=== PATIENT | male | born 1955 | race Caucasian/White ===

== ENCOUNTER → 2019-10-17 | Outpatient (CLI) | payer MEDICARE ==
[~2019-10-17] MED LIST: ADVAIR 250/501 EA PO; ALLOPURINOL1 POW; COREG3.125 MG PO; DOXYCYCLINE100 M3 PO; FLUCONAZOLE100 MG PO; LOPRESSOR25 MG PO; PREDNISONE10 MG PO; PROTONIX40 MG PO; SINGULAIR10 M1 PO; TRICOR145 M1 PO
[2019-10-17 14:21] LABS: BASO % 0.2 % (0.0-1.0); HEMATOCRIT 41.8 % (42.0-52.0); HEMOGLOBIN 14.4 g/dl (14.0-18.0); LYMPH % 16.9 % (27.0-41.0); MEAN CELL VOLUME 105.8 fl (80.0-94.0); MEAN CORPUSCULAR HGB 36.5 pg (27.0-31.0); MEAN CORPUSCULAR HGB CONC 34.4 g/dl (33.0-37.0); MEAN PLATELET VOLUME 10.6 fl (9.6-12.3); MONO # 0.8 10*3/uL (0.1-1.0); MONO % 13.8 % (3.0-9.0); NEUT % 68.6 % (47.0-73.0); PLATELET COUNT AUTOMATED 217 10*3/uL (130-400); RED BLOOD COUNT 3.95 10*6/uL (4.50-5.90); RED CELL DISTRI WIDTH 11.5 % (0-14.5); RETICULOCYTE % 1.95 % (0.50-2.50); WHITE BLOOD COUNT 5.8 10*3/uL (4.8-10.8)
[2019-10-17 14:27] LABS: BILIRUBIN NEGATIVE (NEGATIVE); BLOOD NEGATIVE (NEGATIVE); CLARITY CLEAR (CLEAR); COLOR YELLOW (YELLOW); GLUCOSE NEGATIVE (NEGATIVE); KETONE NEGATIVE (NEGATIVE); LEUKO ESTERASE NEGATIVE (NEGATIVE); NITRITE NEGATIVE (NEGATIVE); UROBILINOGEN 0.2 E.U./dl (0.2-1.0)
[2019-10-17 14:53] LABS: ALBUMIN 4.2 gm/dl (3.1-4.5); ALKALINE PHOSPHATASE 50 U/L (45-117); BUN 13 mg/dl (7-24); CHLORIDE 99 mmol/L (98-107); CHOLESTEROL 194 mg/dL (<200); CPK 140 U/L (39-308); CREATININE 0.96 mg/dL (0.70-1.30); GAMMA GLUTAMYL TRANSPEPTIDASE 33 U/L (15-85); HDL CHOLESTEROL 124 mg/dl (40-60); IRON 100 ug/dL (65-175); LDL CHOLESTEROL 60 mg/dL (9-159); POTASSIUM 4.4 mmol/L (3.5-5.1); SGOT/AST 31 IU/L (3-35); SGPT/ALT 28 U/L (12-78); SODIUM 135 mmol/L (136-145); TOTAL IRON BINDING CAPACITY 364 ug/dl (250-450); TOTAL PROTEIN 7.9 gm/dL (6.4-8.2); TRIGLYCERIDES 48 mg/dl (<150); VLDL CHOLESTEROL 10 mg/dL (6-40)
[2019-10-17 14:59] LABS: VITAMIN D, 25-HYDROXY 18.7 ng/mL (30-100)
[2019-10-17 15:00] LABS: FERRITIN 448.1 ng/mL (22.0-322.0)
== END | disposition home or self-care (01) ==
LOC: LAB 12:54
PROVIDERS: Family Medicine
DX: Z12.5 Encounter for screening for malignant neoplasm of prostate (principal); E55.9 Vitamin D deficiency, unspecified; R53.83 Other fatigue; R79.89 Other specified abnormal findings of blood chemistry; Z79.899 Other long term (current) drug therapy

== ENCOUNTER 2019-12-09 09:56 | Inpatient (IN) | payer MEDICARE ==
[~2019-12-09] VITALS: Ht 172.7 cm; Wt 69.4 kg
[2019-12-09] VITALS (12 sets, daily range): BP systolic 92–175; BP diastolic 46–86
[2019-12-09 10:27] LABS: ARTERIAL BLOOD GAS PH 7.177 (7.35-7.45)
--- NOTE | 2019-12-09 10:28 | NUR ---
PT ON C PAP,PULSE OX 97%. PT RIGHT BY NRS STATION,RESP THERAPY IN ROOM. DR SCHUMACHER IN ROOM.---ANA GAMBOA RN
[2019-12-09 10:38] LABS: BASO % 0.1 % (0.0-1.0); EOS % 0.1 % (1.0-4.0); HEMATOCRIT 38.3 % (42.0-52.0); LYMPH # 0.4 10*3/uL (1.3-4.4); LYMPH % 4.9 % (27.0-41.0); MEAN CORPUSCULAR HGB 34.9 pg (27.0-31.0); MEAN CORPUSCULAR HGB CONC 33.9 g/dl (33.0-37.0); MEAN PLATELET VOLUME 10.8 fl (9.6-12.3); MONO # 0.4 10*3/uL (0.1-1.0); MONO % 4.6 % (3.0-9.0); NEUT % 89.7 % (47.0-73.0); PLATELET COUNT AUTOMATED 169 10*3/uL (130-400); RED BLOOD COUNT 3.72 10*6/uL (4.50-5.90); RED CELL DISTRI WIDTH 11.3 % (0-14.5); WHITE BLOOD COUNT 7.8 10*3/uL (4.8-10.8)
[2019-12-09 10:56] LABS: ALBUMIN 2.7 gm/dl (3.1-4.5); ALKALINE PHOSPHATASE 47 U/L (45-117); BUN 17 mg/dl (7-24); CHLORIDE 92 mmol/L (98-107); CREATININE 1.37 mg/dL (0.70-1.30); POTASSIUM 3.8 mmol/L (3.5-5.1); SGOT/AST 63 IU/L (3-35); SGPT/ALT 28 U/L (12-78); SODIUM 125 mmol/L (136-145); TOTAL PROTEIN 7.2 gm/dL (6.4-8.2)
--- NOTE | 2019-12-09 11:04 | NUR ---
L.ACID 6.0, TROPONIN 1.20 CRITICAL FINDINGS,DR SCHUMACHER MADE AWARE. ---ANA AGMBOA RN
[2019-12-09 11:06] LABS: CLARITY SL CLOUDY (CLEAR); COLOR YELLOW (YELLOW)
[2019-12-09 11:07] LABS: BILIRUBIN NEGATIVE (NEGATIVE); BLOOD 3+ (NEGATIVE); GLUCOSE NEGATIVE (NEGATIVE); KETONE NEGATIVE (NEGATIVE); LEUKO ESTERASE NEGATIVE (NEGATIVE); NITRITE NEGATIVE (NEGATIVE); SPECIFIC GRAVITY 1.025 (1.005-1.030); UROBILINOGEN 0.2 E.U./dl (0.2-1.0)
[2019-12-09 11:14] LABS: BACTERIA 2+; RBC TNTC rbc/hpf (0-2); WBC 21-30 wbc/hpf (0-5)
--- NOTE | 2019-12-09 12:00 | NUR ---
In to see pt at this time and family and him do not need anything.
--- NOTE | 2019-12-09 14:00 | NUR ---
A 64 yr old male, admitted to [facility]U, under the services of ISABELA Phillips DO with a diagnosis of RESPIRATORY FAILURE, SEVERE SEPSIS, PNEUMONIA. Chief complaint is sudden onset of respiratory distress at home today. Patient arrived via stretcher from ER. Monitor applied. Initial assessment completed. Vital signs taken and recorded. See assessment for past medical history, medications and allergies. Patient and/or family oriented to unit. [facility] visitation policy reviewed. Clothing/patient valuable form completed. DHIRAJ OLSON L
[2019-12-09] MEDS ORDERED: VITAMIN D3 PO (14:21)
[2019-12-09] MEDS ORDERED: RISEDRONATE SO150 MG PO (14:29)
[2019-12-09] MEDS ORDERED: B121000 MCG/1 IM (14:30)
--- NOTE | 2019-12-09 15:17 | NUR ---
HEPARIN DRIP DVT/PE PROTOCOL STARTED AT 1500 PER PROTOCOL. NO BOLUS GIVEN BASELINE PTT 36.7. PT RESTING PRESENTLY ON 4L/MIN. ABLE TO CONVERSE. ATTEMPTED TO CALL DR SCOTT WITH CONSULT, HE'S WITH A PATIENT AND WILL CALL BACK. AWAITING BMP JUST DRAWN TO CALL DR KRISHNAMURTHY WITH CONSULTATION. PER DR Kenny WATSON HE HAS SPOKEN WITH DR MAGANA, THEREFORE I AM NOT CALLING THAT CONSULT.
[2019-12-09 15:33] LABS: BUN 16 mg/dl (7-24); CHLORIDE 96 mmol/L (98-107); CREATININE 1.09 mg/dL (0.70-1.30); POTASSIUM 3.4 mmol/L (3.5-5.1); SODIUM 129 mmol/L (136-145)
--- NOTE | 2019-12-09 16:04 | NUR ---
CONSULT CALLED TO [facility] WITH A REQUEST TO CALL BACK FOR IV FLUID ORDERS.
[2019-12-09 16:14] LABS: ABG BASE EXCESS -4.4 mmol/L (-2.0-2.0); ARTERIAL BLOOD GAS PH 7.363 (7.35-7.45)
--- NOTE | 2019-12-09 17:53 | NUR ---
PT HAS BEEN ACCOMPANIED TO RADIOLOGY FOR CTA. ON RETURN HE'S DEVELOPED ATRIAL FLUTTER/FIB WITH VR 170'S THEN 90'S. DR KAT HERE AND AWARE. STAT EKG ORDERED. PT DENIES DISCOMFORT. HE DECLINES WANTING ANY FOOD AT THIS TIME. AT THE BEDSIDE.
--- NOTE | 2019-12-09 18:23 | NUR ---
EKG WAS DONE, DR WATSON SENT IT TO DR MAGANA AND TALKED WITH DR MAGANA. NO NEW ORDERS. DR SCOTT HAS NOT CALLED BACK. NOW AWAITING CTA RESULTS TO ATTEMPT TO COMPLETE THE CONSULTATION.
--- NOTE | 2019-12-09 18:26 | NUR ---
PT RESTING EASILY, WATCHING TV ON HIS LAPTOP COMPUTER. AT THE BEDSIDE. MONITOR IS ATRIAL FLUTTER/FIB VR 90-130.
--- NOTE | 2019-12-09 18:45 | NUR ---
AFTER I CALLED THE CONSULT TO [facility] DR KRISHNAMURTHY ENTERED ORDERS ELECTRONICALLY, BUT DID NOT CALL THE [facility].
--- NOTE | 2019-12-09 19:29 | NUR ---
DR SCOTT CALLED, INFORMED OF CONSULT. REVIEWED LABS, XRAYS, CURRENT MEDS WITH HIM. ORDERS RECEIVED. PT HAS BEEN UP TO BSC TO VOID AND HAVE LOOSE STOOL COMBINED, UNABLE TO OBTAIN ANY URINE SPECIMENS.
--- NOTE | 2019-12-09 19:45 | NUR ---
PT HR 130-160. DR MAGANA NOTIFIED AND NEW ORDERS FOR DIG 0.5MG IV X1 NOW. THEN CARDIZEM GTT, GIVE 10MG BOLUS AND CONTINUE AT 10MG/HR AND TITRATE FOR HR >100 AND FOR SPB<100.
--- NOTE | 2019-12-09 20:00 | NUR ---
PT RESTING IN BED AWAKE, A&OX3, PLEASANT AND COOPERATIVE WITH STAFF. RESP DYSPNEIC WITH MINIMAL EXERTION. NO ACUTE DISTRESS NOTED. NO COMPLAINTS VOICED. IV HEPARIN INFUSING ORDERED WITHOUT DIFFICULTY.
[2019-12-09 22:24] LABS: BILIRUBIN NEGATIVE (NEGATIVE); BLOOD 3+ (NEGATIVE); CLARITY CLEAR (CLEAR); COLOR YELLOW (YELLOW); GLUCOSE NEGATIVE (NEGATIVE); KETONE NEGATIVE (NEGATIVE); LEUKO ESTERASE NEGATIVE (NEGATIVE); NITRITE NEGATIVE (NEGATIVE); SPECIFIC GRAVITY 1.005 (1.005-1.030); UROBILINOGEN 0.2 E.U./dl (0.2-1.0)
[2019-12-09 22:29] LABS: RBC 0-2 rbc/hpf (0-2)
[2019-12-09 22:30] LABS: BACTERIA TRACE; EPITHELIAL CELLS 0-2
[2019-12-10] VITALS: BP 112/67
[2019-12-10 04:00] VITALS: BP 103/55
[2019-12-10 07:00] LABS: HEMATOCRIT 34.1 % (42.0-52.0); HEMOGLOBIN 11.6 g/dl (14.0-18.0); MEAN CELL VOLUME 104.3 fl (80.0-94.0); MEAN CORPUSCULAR HGB 35.5 pg (27.0-31.0); MEAN PLATELET VOLUME 10.2 fl (9.6-12.3); PLATELET COUNT AUTOMATED 160 10*3/uL (130-400); RED BLOOD COUNT 3.27 10*6/uL (4.50-5.90); RED CELL DISTRI WIDTH 11.6 % (0-14.5); WHITE BLOOD COUNT 10.4 10*3/uL (4.8-10.8)
[2019-12-10 07:14] LABS: ALBUMIN 2.4 gm/dl (3.1-4.5); ALKALINE PHOSPHATASE 48 U/L (45-117); BUN 20 mg/dl (7-24); CHLORIDE 99 mmol/L (98-107); PHOSPHOROUS 2.6 mg/dL (2.5-4.9); POTASSIUM 3.9 mmol/L (3.5-5.1); SGOT/AST 73 IU/L (3-35); SGPT/ALT 39 U/L (12-78); SODIUM 131 mmol/L (136-145); TOTAL PROTEIN 6.7 gm/dL (6.4-8.2)
[2019-12-10 07:24] LABS: BURR CELLS MODERATE; PLATELET SUFFICIENCY NORMAL (NORMAL); TOTAL CELLS COUNTED 100 #CELLS; TOXIC GRANULATION SLIGHT
[2019-12-10 08:00] VITALS: BP 106/64
--- NOTE | 2019-12-10 08:34 | NUR ---
DR RAZO IN TO SEE PT. HE STATED TO CONTINUE TITRATING CARDIZEM GTT DOWN DUE TO PT IS NSR WITH A RATE IN THE 80'S NOW. CARDIZEM GTT DECREASED TO 2.5MG/HR AT THIS TIME.
--- NOTE | 2019-12-10 09:00 | NUR ---
Windows Architect in to talk to patient. Patient states lives at home with his . There are 12 steps in the home. Physician: Dr. Domingo Taylor Pharmacy: [facility] or mail in if the prescription is needed for more than 30 days Home health services: none Patient's level of ADLs: INDEPENDENT Patient has working utilities: yes DME: O2 to keep sats between 92-98%, he uses his O2 prn, portable tanks, nebulizer, O2 supplier [employer] Follow-up physician's appointment after d/c: will be made by the hospitalist nurse director upon discharge Does patient want to access PORTAL?: no Discharge plan discussed with patient. He lives at home with his . He is independent in his ADLs and ambulation. Discussed home health care services and he denies any home needs at this time. When medically stable he will be discharged to home. His will provide transportation on discharge. JUAN MORTON
--- NOTE | 2019-12-10 09:51 | NUR ---
DR KRISHNAMURTHY IN TO SEE PT.
--- NOTE | 2019-12-10 11:19 | NUR ---
HEPARIN GTT DC'D AT THIS TIME.
[2019-12-10 12:00] VITALS: BP 120/60
[2019-12-10 15:56] VITALS: BP 123/58
[2019-12-10 20:00] VITALS: BP 133/70
--- NOTE | 2019-12-10 20:54 | NUR ---
ON ASSESSMENT PATIENT RESTING EASILY IN BED, WATCHING TV ON HIS LAPTOP. WAS AT THE BEDSIDE. PT REPORTS FEELING "MUCH BETTER". MONITOR SINUS TACHY WITH PAC'S. MOIST, OCCASIONALLY PRODUCTIVE COUGH. IV FLUIDS CONTINUE PER ORDER. SEE ALL APPROPRIATE INTERVENTIONS.
--- NOTE | 2019-12-10 23:09 | NUR ---
I HAD OFFERED TO HELP PT WASH UP BEFORE BED, BUT HE PREFERS TO WAIT UNTIL TOMORROW WHEN HIS COMES BACK. I ASKED PT IF HAS ANY FEELINGS OF ALCOHOL WITHDRAWL AND HE DENIES. HE'S COMFORTABLE AND ASKED THAT I CLOSE HIS DOOR. HE CONTINUES TO WATCH TV ON HIS LAPTOP.
--- NOTE | 2019-12-10 23:38 | NUR ---
Shift chart check completed.24 HR chart check completed.
[2019-12-11] VITALS: BP 137/90
--- NOTE | 2019-12-11 00:23 | NUR ---
PT ASSISTED TO POSITION OF COMFORT AFTER RESPIRATORY TREATMENT. PT STATES "I CAN'T THANK YOU ENOUGH. I'M VERY HAPPY WITH EVERYTHING HERE".
[2019-12-11 06:00] VITALS: BP 151/81
[2019-12-11 07:17] LABS: BASO % 0.1 % (0.0-1.0); EOS % 0.1 % (1.0-4.0); HEMATOCRIT 33.4 % (42.0-52.0); HEMOGLOBIN 11.2 g/dl (14.0-18.0); LYMPH # 0.3 10*3/uL (1.3-4.4); MEAN CELL VOLUME 105.7 fl (80.0-94.0); MEAN CORPUSCULAR HGB 35.4 pg (27.0-31.0); MEAN CORPUSCULAR HGB CONC 33.5 g/dl (33.0-37.0); MEAN PLATELET VOLUME 10.3 fl (9.6-12.3); MONO % 10.4 % (3.0-9.0); NEUT # 8.6 10*3/uL (2.3-7.9); NEUT % 85.6 % (47.0-73.0); PLATELET COUNT AUTOMATED 188 10*3/uL (130-400); RED BLOOD COUNT 3.16 10*6/uL (4.50-5.90); RED CELL DISTRI WIDTH 11.7 % (0-14.5)
[2019-12-11 07:31] LABS: BUN 17 mg/dl (7-24); PHOSPHOROUS 1.4 mg/dL (2.5-4.9)
[2019-12-11 07:35] LABS: CHLORIDE 102 mmol/L (98-107); POTASSIUM 3.5 mmol/L (3.5-5.1); SODIUM 136 mmol/L (136-145)
--- NOTE | 2019-12-11 08:00 | NUR ---
Slip Cover Estimator in to see patient. No new needs or request. He denies any home needs at this time. When medically stable he will be discharged to home.
[2019-12-11 12:00] VITALS: BP 122/67
--- NOTE | 2019-12-11 12:27 | NUR ---
HEART RATE 170'S A-FIB . DIAPHORETIC. BP 115/79. MEDICATED WITH ATIVAN 1MG IV AND CARDIZEM BOLUS OF 10MG AND GTT STARTED AT 10MG/HR
--- NOTE | 2019-12-11 13:07 | NUR ---
AEROSOL TREATMENT HELD PER NURSING. PT. HR 160'S
[2019-12-11 16:00] VITALS: BP 138/81
--- NOTE | 2019-12-11 18:00 | NUR ---
TRANSFERRED TO ROOM 404-2 VIA CHAIR. HERE AT BEDSIDE
--- NOTE | 2019-12-11 19:50 | NUR ---
PATIENT SITTING IN CHAIR AT BEDSIDE WITH NO NEEDS MADE. VISITORS AT BEDSIDE. ASSESSMENT COMPLETE. BED IN LOWEST POSITION, CALL LIGHT IN REACH
[2019-12-11 20:00] VITALS: BP 123/55
[2019-12-12] VITALS: BP 136/64
--- NOTE | 2019-12-12 01:25 | NUR ---
24 HR chart check completed.
[2019-12-12 07:01] LABS: HEMATOCRIT 36.1 % (42.0-52.0); HEMOGLOBIN 11.5 g/dl (14.0-18.0); MEAN CELL VOLUME 108.4 fl (80.0-94.0); MEAN CORPUSCULAR HGB 34.5 pg (27.0-31.0); MEAN CORPUSCULAR HGB CONC 31.9 g/dl (33.0-37.0); MEAN PLATELET VOLUME 10.1 fl (9.6-12.3); PLATELET COUNT AUTOMATED 235 10*3/uL (130-400); RED BLOOD COUNT 3.33 10*6/uL (4.50-5.90); RED CELL DISTRI WIDTH 11.8 % (0-14.5); WHITE BLOOD COUNT 6.2 10*3/uL (4.8-10.8)
[2019-12-12 07:22] LABS: BUN 13 mg/dl (7-24); CHLORIDE 103 mmol/L (98-107); CREATININE 0.84 mg/dL (0.70-1.30); POTASSIUM 3.7 mmol/L (3.5-5.1); SODIUM 138 mmol/L (136-145)
[2019-12-12 07:26] LABS: PHOSPHOROUS 2.3 mg/dL (2.5-4.9)
[2019-12-12 07:41] LABS: ATYPICAL LYMPHS 1 % (0-0); BURR CELLS FEW; PLATELET SUFFICIENCY NORMAL (NORMAL); SCHISTOCYTES FEW; TOTAL CELLS COUNTED 100 #CELLS
[2019-12-12 08:00] VITALS: BP 122/54
--- NOTE | 2019-12-12 09:00 | NUR ---
PT OFF FLOOR VIA WHEELCHAIR TO CARDIAC REHAB WITH DR MAGANA FOR STRESS TEST.
--- NOTE | 2019-12-12 09:45 | NUR ---
INFORMED CONSENT OBTAINED FOR LEXISCAN NUCLEAR STRESS TEST WITH DR. MAGANA. RESTING EKG NSR WITH A RESTING HR OF 99 WITH BP OF 122/64. LUNGS WITH INSPIRATORY AND EXPIRATORY WHEEZE WITH SPO2 OF 93% WITH NASAL O2 AT 3L. PT COMPLETED A 1:00 LEXISCAN PROTOCOL RECEIVING LEXISCAN 0.4 MG IV OVER 10 SECONDS. HAD NO CHEST PAIN OR ANY EKG CHANGES. HAD A PEAK HR OF 108 WITH BP OF 120/60. LAST RECOVERY HR OF 106 WITH BP OF 130/68. AWAITING SCANNING IN STABLE CONDITION.
--- NOTE | 2019-12-12 09:49 | NUR ---
Attempted PT evaluation this am with pt out of room receiving stress test. Will attempt at later date Leigha Quintana, PT
--- NOTE | 2019-12-12 09:49 | NUR ---
Patient not available for occupational therapy evaluation as he is at a stress test. Evie Boykin OTr/L
--- NOTE | 2019-12-12 11:00 | NUR ---
Belt Splicer in to see patient. He is not currently in his room but his is at the beside. Discussed any discharge needs at home and she denies any home needs. When medically stable he will be discharged to home.
[2019-12-12 12:00] VITALS: BP 137/69
[2019-12-12 16:00] VITALS: BP 128/67
[2019-12-12 20:00] VITALS: BP 140/64
[2019-12-13] VITALS: BP 146/70
[2019-12-13 08:00] VITALS: BP 144/70
--- NOTE | 2019-12-13 08:41 | NUR ---
PT SITTING UP IN CHAIR, NO DISTRESS NOTED. WILL MONITOR
[2019-12-13 08:45] LABS: BUN 10 mg/dl (7-24); CHLORIDE 103 mmol/L (98-107); CREATININE 0.54 mg/dL (0.70-1.30); POTASSIUM 3.5 mmol/L (3.5-5.1); SODIUM 139 mmol/L (136-145)
--- NOTE | 2019-12-13 10:00 | NUR ---
PHYSICAL THERAPY PT SCREEN COMPLETED TODAY AND PATIENT IS FOUND TO BE UP AD AB IN ROOM WITHOUT ANY ISSUES AND STATING HE DOES NOT WANT OR NEED PT SERVICES. BASED ON SCREEN NO PT INDICATED . THANK YOU FOR REFERRAL VIVIANA LUNA PT
[2019-12-13 12:00] VITALS: BP 137/61
[2019-12-13 16:00] VITALS: BP 154/74
[2019-12-13 20:00] VITALS: BP 139/71
[2019-12-13 21:03] LABS: INFLUENZA B ANTIBODIES 1:32 (Neg:<1:8)
[2019-12-14] VITALS: BP 132/69
--- NOTE | 2019-12-14 07:53 | NUR ---
PT RESTING IN BED/ NO DISTRESS NOTED. WILL MONITOR
[2019-12-14 08:00] VITALS: BP 142/66
[2019-12-14 12:00] VITALS: BP 123/72
--- NOTE | 2019-12-14 12:15 | NUR ---
HOME O2 ASSESSMENT PERFORMED SPO2 AT REST ON RA - 83%, HR - 93, BP - 132/64 3L NASAL CANNULA APPLIED SPO2 AT REST ON 3L NASAL CANNULA - 93% SPO2 AMBULATING ON 3L NASAL CANNULA - 87% 4L NASAL CANNULA APPLIED SPO2 AMBULATING ON 4L NASAL CANNULA - 88% 5L NASAL CANNULA APPLIED SPO2 AMBULATING ON 5L NASAL CANNULA - 91% SPO2 AT REST ON 3L NASAL CANNULA - 93%, HR - 102, BP 138/72
[2019-12-14 16:00] VITALS: BP 134/63
--- NOTE | 2019-12-14 19:53 | NUR ---
PATIENT RESTING IN CHAIR AT BEDSIDE, DENIES SHORTNESS OF BREATH OR NEEDS AT THIS TIME. BED IN LOWEST POSITION, CALL LIGHT IN REACH
[2019-12-14 20:00] VITALS: BP 139/63
[2019-12-15] VITALS: BP 139/70
--- NOTE | 2019-12-15 07:48 | NUR ---
PT RESTING IN CHAIR. NO DISTRESS NOTED. WILL MONITOR
[2019-12-15 08:00] VITALS: BP 130/68
--- NOTE | 2019-12-15 09:00 | NUR ---
Software Release Engineer in to see patient. at bedside. No new needs or request at this time. When medically stable he will be discharged to home.
--- NOTE | 2019-12-15 10:37 | NUR ---
Nutritional Support Services Note: Discussed cardiac diet with pt and pts . All questions were answered. They have a healthy diet. Encouraged them to call me with any questions or concerns. Love Subramanian Rdn Ld
[2019-12-15 12:00] VITALS: BP 126/63
[2019-12-15] MEDS ORDERED: VANCO 1.51.5 GM/250 IV (12:25)
[2019-12-15] MEDS ORDERED: METOPROLOL SUCC50 M1 PO (12:25)
[2019-12-15] MEDS ORDERED: ATORVASTATIN CA40 M1 PO (12:25)
[2019-12-15] MEDS ORDERED: ASPIRIN ADULT L81 M2 PO (12:25)
[2019-12-15] MEDS ORDERED: XARE20MG PO (12:25)
--- NOTE | 2019-12-15 13:04 | NUR ---
Faxed prescription of Vancomycin 1500 mg IV daily BID for 7 more days to [facility]. Awaiting response.
--- NOTE | 2019-12-15 13:19 | NUR ---
Faxed home health order to [facility]
--- NOTE | 2019-12-15 13:30 | NUR ---
Patient not available for OT as he is having a test in his room. Nursing reports that he is to be discharged today. Evie Boykin OTr/l
--- NOTE | 2019-12-15 14:25 | NUR ---
Received call from Marilee at [facility]. They are currently working on his case.
--- NOTE | 2019-12-15 15:38 | NUR ---
Spoke to Marilee from [facility] regarding home IV antibiotics. Drug co-pay will be $210.79 with a $26 daily fee. Discussed with and patient regarding above cost and they are agreeable. Notified Marilee at [facility], Anai at [facility], and Dr. Bhat. 1st dose of IV Vanc currently infusing. Plan is to discharge patient home tonight with 1st dose of IV antibiotic tomorrow at home at 10am. and patient are willing to learn how to administer. Nurse notified.
[2019-12-15 16:00] VITALS: BP 138/64
--- NOTE | 2019-12-15 16:07 | NUR ---
Notified and patient of potential discharge tonight with start of care of IV antibiotics tomorrow morning at 10am. They both verbalized an understanding.
--- NOTE | 2019-12-15 17:54 | NUR ---
Discharge instructions reviewed with patient/family. Patient receptive and verbalizes understanding. Follow-up care arranged. Written instructions given to patient/family. VIOLET DOAN
[2019-12-17 10:05] LABS: ADENOVIRUS Negative (Negative); INFLUENZA A Negative (Negative); INFLUENZA B Negative (Negative); METAPNEUMOVIRUS Negative (Negative); PARAINFLUENZA 1 Negative (Negative); PARAINFLUENZA 2 Negative (Negative); PARAINFLUENZA 3 Negative (Negative); RHINOVIRUS Negative (Negative); RSV A Negative (Negative); RSV B Negative (Negative)
== END 2019-12-15 17:54 | disposition home or self-care (01) | DRG 871 ==
LOC: ED 09:56 → ICCU 11:50 → EDHOLD 11:50 → ICCU 13:06 → 4E 12-11 17:27
PROVIDERS: Emergency Medicine; Internal Medicine; Internal Medicine Critical Care Medicine; Internal Medicine Nephrology; Student in an Organized Health Care Education/Training Program; ADMIT Internal Medicine
DX: A41.9 Sepsis, unspecified organism (principal); J96.21 Acute and chronic respiratory failure with hypoxia; N17.0 Acute kidney failure with tubular necrosis; R65.21 Severe sepsis with septic shock; J15.211 Pneumonia due to Methicillin susceptible Staphylococcus aureus; J96.22 Acute and chronic respiratory failure with hypercapnia; I21.A1 Myocardial infarction type 2; N30.01 Acute cystitis with hematuria; E87.1 Hypo-osmolality and hyponatremia; E87.8 Other disorders of electrolyte and fluid balance, not elsewhere classified; R73.9 Hyperglycemia, unspecified; I48.91 Unspecified atrial fibrillation; J43.9 Emphysema, unspecified; I10 Essential (primary) hypertension; R74.0 Nonspecific elevation of levels of transaminase and lactic acid dehydrogenase [LDH]; F10.10 Alcohol abuse, uncomplicated; D53.9 Nutritional anemia, unspecified; E83.39 Other disorders of phosphorus metabolism; Z90.49 Acquired absence of other specified parts of digestive tract; Z82.3 Family history of stroke; Z83.3 Family history of diabetes mellitus; Z68.23 Body mass index [BMI] 23.0-23.9, adult; Z88.0 Allergy status to penicillin; Z91.018 Allergy to other foods

== ENCOUNTER 2019-12-25 14:10 | Emergency (ER) | payer MEDICARE ==
[~2019-12-25] VITALS: Ht 172.7 cm; Wt 68.0 kg
[~2019-12-25 14:10] MED LIST changes: +ASPIRIN ADULT L81 M2 PO; +ATORVASTATIN CA40 M1 PO; +B121000 MCG/1 IM; +METOPROLOL SUCC50 M1 PO; +RISEDRONATE SO150 MG PO; +VANCO 1.51.5 GM/250 IV; +VITAMIN D3 PO; +XARE20MG PO
== END 2019-12-25 16:32 | disposition home or self-care (01) ==
LOC: ED 14:10
DX: N17.9 Acute kidney failure, unspecified (principal); J44.9 Chronic obstructive pulmonary disease, unspecified; I48.91 Unspecified atrial fibrillation; I10 Essential (primary) hypertension; Z88.0 Allergy status to penicillin; Z91.018 Allergy to other foods; Z79.899 Other long term (current) drug therapy; Z87.891 Personal history of nicotine dependence

== ENCOUNTER → 2020-11-16 | Outpatient (CLI) | payer MEDICARE ==
[2020-11-16 14:30] LABS: BASO % 0.4 % (0.0-1.0); EOS % 0.3 % (1.0-4.0); LYMPH # 1.3 10*3/uL (1.3-4.4); LYMPH % 17.2 % (27.0-41.0); MEAN CELL VOLUME 104.2 fl (80.0-94.0); MEAN CORPUSCULAR HGB 34.1 pg (27.0-31.0); MEAN CORPUSCULAR HGB CONC 32.8 g/dl (33.0-37.0); MONO # 0.9 10*3/uL (0.1-1.0); MONO % 11.9 % (3.0-9.0); NEUT # 5.1 10*3/uL (2.3-7.9); NEUT % 69.7 % (47.0-73.0); PLATELET COUNT AUTOMATED 207 10*3/uL (130-400); RED BLOOD COUNT 3.84 10*6/uL (4.50-5.90); RED CELL DISTRI WIDTH 12.3 % (0-14.5); WHITE BLOOD COUNT 7.3 10*3/uL (4.8-10.8)
[2020-11-16 14:34] LABS: BILIRUBIN Negative (Negative); BLOOD Trace-Lysed (Negative); CLARITY Clear (Clear); COLOR Yellow (Yellow); GLUCOSE Negative (Negative); KETONE Trace (Negative); LEUKO ESTERASE Negative (Negative); NITRITE Negative (Negative); PH 6.5 (4.5-8.0); SPECIFIC GRAVITY 1.015 (1.001-1.030)
[2020-11-16 14:41] LABS: BACTERIA 1+; EPITHELIAL CELLS 0-2; HYALINE CAST TNTC; RBC 0-2 rbc/hpf (0-2)
[2020-11-16 14:45] LABS: ALBUMIN 3.5 gm/dl (3.1-4.5); ALKALINE PHOSPHATASE 51 U/L (45-117); BUN 15 mg/dl (7-24); CHLORIDE 105 mmol/L (98-107); CHOLESTEROL 168 mg/dL (<200); CREATININE 1.15 mg/dL (0.70-1.30); GAMMA GLUTAMYL TRANSPEPTIDASE 79 U/L (15-85); HDL CHOLESTEROL 95 mg/dl (40-60); IRON 117 ug/dL (65-175); LDL CHOLESTEROL 38 mg/dL (9-159); POTASSIUM 4.4 mmol/L (3.5-5.1); SGOT/AST 26 IU/L (3-35); SGPT/ALT 23 U/L (12-78); SODIUM 139 mmol/L (136-145); TOTAL IRON BINDING CAPACITY 393 ug/dl (250-450); TOTAL PROTEIN 7.4 gm/dL (6.4-8.2); TRIGLYCERIDES 177 mg/dl (<150); VLDL CHOLESTEROL 35 mg/dL (6-40)
[2020-11-16 14:47] LABS: CPK 118 U/L (39-308)
[2020-11-16 15:17] LABS: FERRITIN 467.2 ng/mL (22.0-322.0); VITAMIN D, 25-HYDROXY 29.3 ng/mL (30-100)
== END | disposition home or self-care (01) ==
LOC: LAB 13:20
PROVIDERS: ATTEND Family Medicine
DX: Z12.5 Encounter for screening for malignant neoplasm of prostate (principal); E55.9 Vitamin D deficiency, unspecified; E78.5 Hyperlipidemia, unspecified; R53.83 Other fatigue; R79.89 Other specified abnormal findings of blood chemistry

== ENCOUNTER → 2020-12-14 | Outpatient (CLI) | payer MEDICARE ==
[2020-12-14 13:42] LABS: BASO % 0.3 % (0.0-1.0); EOS % 0.2 % (1.0-4.0); HEMATOCRIT 39.7 % (42.0-52.0); LYMPH # 1.3 10*3/uL (1.3-4.4); MEAN CELL VOLUME 103.9 fl (80.0-94.0); MEAN CORPUSCULAR HGB CONC 32.7 g/dl (33.0-37.0); MEAN PLATELET VOLUME 10.3 fl (9.6-12.3); MONO # 0.8 10*3/uL (0.1-1.0); MONO % 12.6 % (3.0-9.0); NEUT # 4.2 10*3/uL (2.3-7.9); NEUT % 65.6 % (47.0-73.0); PLATELET COUNT AUTOMATED 209 10*3/uL (130-400); RED BLOOD COUNT 3.82 10*6/uL (4.50-5.90); RED CELL DISTRI WIDTH 12.2 % (0-14.5); WHITE BLOOD COUNT 6.4 10*3/uL (4.8-10.8)
[2020-12-14 13:44] LABS: BILIRUBIN Negative (Negative); BLOOD Negative (Negative); CLARITY Clear (Clear); COLOR Yellow (Yellow); GLUCOSE Negative (Negative); KETONE Negative (Negative); LEUKO ESTERASE Negative (Negative); NITRITE Negative (Negative); SPECIFIC GRAVITY 1.015 (1.001-1.030); UROBILINOGEN 0.2 E.U./dl (0.0-1.0)
[2020-12-14 14:06] LABS: IRON 109 ug/dL (65-175); TOTAL IRON BINDING CAPACITY 358 ug/dl (250-450)
[2020-12-14 14:12] LABS: BACTERIA TRACE; EPITHELIAL CELLS 0-2; MUCOUS TRACE; RBC 0-2 rbc/hpf (0-2)
== END | disposition home or self-care (01) ==
LOC: LAB 13:12
PROVIDERS: ATTEND Family Medicine
DX: R53.83 Other fatigue (principal); R79.89 Other specified abnormal findings of blood chemistry

== ENCOUNTER 2021-02-15 14:05 | Inpatient (IN) | payer MEDICARE ==
[~2021-02-15] VITALS: Ht 175.2 cm; Wt 79.2 kg
[2021-02-15 14:52] LABS: BASO % 0.1 % (0.0-1.0); HEMATOCRIT 41.3 % (42.0-52.0); LYMPH # 0.4 10*3/uL (1.3-4.4); LYMPH % 4.3 % (27.0-41.0); MEAN CELL VOLUME 101.7 fl (80.0-94.0); MEAN CORPUSCULAR HGB 33.7 pg (27.0-31.0); MEAN CORPUSCULAR HGB CONC 33.2 g/dl (33.0-37.0); MONO # 0.5 10*3/uL (0.1-1.0); MONO % 5.3 % (3.0-9.0); NEUT % 89.9 % (47.0-73.0); PLATELET COUNT AUTOMATED 222 10*3/uL (130-400); RED BLOOD COUNT 4.06 10*6/uL (4.50-5.90); RED CELL DISTRI WIDTH 11.9 % (0-14.5); WHITE BLOOD COUNT 8.9 10*3/uL (4.8-10.8)
[2021-02-15 15:01] VITALS: BP 124/64
[2021-02-15 15:04] LABS: ACT PARTIAL THROMBO TIME 33.6 SECONDS (20.0-32.1); INTERNATIONAL NORM RATIO 1.2 (2.0-3.5)
[2021-02-15 15:09] LABS: ALBUMIN 3.3 gm/dl (3.1-4.5); ALKALINE PHOSPHATASE 49 U/L (45-117); BUN 12 mg/dl (7-24); CHLORIDE 100 mmol/L (98-107); CREATININE 1.04 mg/dL (0.70-1.30); POTASSIUM 4.1 mmol/L (3.5-5.1); SGOT/AST 31 IU/L (3-35); SGPT/ALT 23 U/L (12-78); SODIUM 130 mmol/L (136-145); TOTAL PROTEIN 7.5 gm/dL (6.4-8.2)
[2021-02-15 15:13] LABS: TROPONIN I < 0.015 ng/ml (<0.045)
[2021-02-15 15:28] LABS: ARTERIAL BLOOD GAS PH 7.391 (7.35-7.45); ARTERIAL BLOOD GAS PO2 91.5 (80-90)
[2021-02-15 18:57] VITALS: BP 128/58
[2021-02-15 20:18] VITALS: BP 114/60
[2021-02-15 21:20] VITALS: BP 113/64
[2021-02-15 22:14] VITALS: BP 114/64
[2021-02-16 02:00] VITALS: BP 110/55
[2021-02-16 04:12] VITALS: BP 102/49
[2021-02-16 05:23] LABS: ALBUMIN 2.8 gm/dl (3.1-4.5); ALKALINE PHOSPHATASE 39 U/L (45-117); BUN 18 mg/dl (7-24); CHLORIDE 102 mmol/L (98-107); CREATININE 1.01 mg/dL (0.70-1.30); POTASSIUM 3.7 mmol/L (3.5-5.1); SGOT/AST 44 IU/L (3-35); SGPT/ALT 24 U/L (12-78); SODIUM 132 mmol/L (136-145); TOTAL PROTEIN 6.7 gm/dL (6.4-8.2)
[2021-02-16 06:23] LABS: HEMATOCRIT 38.6 % (42.0-52.0); MEAN CELL VOLUME 103.8 fl (80.0-94.0); MEAN CORPUSCULAR HGB 34.1 pg (27.0-31.0); MEAN CORPUSCULAR HGB CONC 32.9 g/dl (33.0-37.0); MEAN PLATELET VOLUME 10.6 fl (9.6-12.3); PLATELET COUNT AUTOMATED 196 10*3/uL (130-400); RED BLOOD COUNT 3.72 10*6/uL (4.50-5.90); RED CELL DISTRI WIDTH 12.2 % (0-14.5); WHITE BLOOD COUNT 10.4 10*3/uL (4.8-10.8)
[2021-02-16 07:24] LABS: BURR CELLS FEW; PLATELET SUFFICIENCY NORMAL (NORMAL); POLYCHROMASIA SLIGHT; TOTAL CELLS COUNTED 100 #CELLS
[2021-02-16 07:51] VITALS: BP 108/57
[2021-02-16 08:33] VITALS: BP 137/95
[2021-02-16 12:00] VITALS: BP 134/59
[2021-02-16 16:00] VITALS: BP 118/62
[2021-02-17 06:22] LABS: HEMATOCRIT 35.1 % (42.0-52.0); LYMPH # 0.7 10*3/uL (1.3-4.4); LYMPH % 8.2 % (27.0-41.0); MEAN CELL VOLUME 104.2 fl (80.0-94.0); MEAN CORPUSCULAR HGB 33.5 pg (27.0-31.0); MEAN CORPUSCULAR HGB CONC 32.2 g/dl (33.0-37.0); MEAN PLATELET VOLUME 10.7 fl (9.6-12.3); MONO # 0.6 10*3/uL (0.1-1.0); MONO % 7.3 % (3.0-9.0); NEUT # 6.9 10*3/uL (2.3-7.9); NEUT % 83.5 % (47.0-73.0); PLATELET COUNT AUTOMATED 192 10*3/uL (130-400); RED BLOOD COUNT 3.37 10*6/uL (4.50-5.90); RED CELL DISTRI WIDTH 12.2 % (0-14.5); WHITE BLOOD COUNT 8.3 10*3/uL (4.8-10.8)
[2021-02-17 06:23] LABS: BUN 13 mg/dl (7-24); CHLORIDE 105 mmol/L (98-107); POTASSIUM 3.6 mmol/L (3.5-5.1); SODIUM 136 mmol/L (136-145)
[2021-02-17 06:24] LABS: CREATININE 0.77 mg/dL (0.70-1.30)
[2021-02-17 08:00] VITALS: BP 125/63
[2021-02-17 12:00] VITALS: BP 112/57
[2021-02-17 16:00] VITALS: BP 134/66
[2021-02-17 20:00] VITALS: BP 128/61
[2021-02-18] VITALS: BP 132/70
[2021-02-18 08:00] VITALS: BP 134/70
[2021-02-18 08:30] VITALS: BP 130/70
[2021-02-18 12:00] VITALS: BP 119/63
[2021-02-18 16:00] VITALS: BP 132/61
[2021-02-18 20:00] VITALS: BP 124/61
[2021-02-19] VITALS: BP 138/67
[2021-02-19 06:10] LABS: BUN 12 mg/dl (7-24); CHLORIDE 111 mmol/L (98-107); CREATININE 0.79 mg/dL (0.70-1.30); POTASSIUM 3.6 mmol/L (3.5-5.1); SODIUM 143 mmol/L (136-145)
[2021-02-19 06:23] LABS: BASO % 0.3 % (0.0-1.0); HEMATOCRIT 34.5 % (42.0-52.0); LYMPH # 0.5 10*3/uL (1.3-4.4); LYMPH % 6.3 % (27.0-41.0); MEAN CELL VOLUME 105.2 fl (80.0-94.0); MEAN CORPUSCULAR HGB 33.5 pg (27.0-31.0); MEAN CORPUSCULAR HGB CONC 31.9 g/dl (33.0-37.0); MEAN PLATELET VOLUME 10.4 fl (9.6-12.3); MONO # 0.6 10*3/uL (0.1-1.0); MONO % 7.4 % (3.0-9.0); NEUT # 6.2 10*3/uL (2.3-7.9); NEUT % 83.4 % (47.0-73.0); PLATELET COUNT AUTOMATED 214 10*3/uL (130-400); RED BLOOD COUNT 3.28 10*6/uL (4.50-5.90); RED CELL DISTRI WIDTH 12.2 % (0-14.5); WHITE BLOOD COUNT 7.5 10*3/uL (4.8-10.8)
[2021-02-19 08:00] VITALS: BP 139/72
[2021-02-19] MEDS ORDERED: ZITHROMAX250 MG PO (11:00)
[2021-02-19] MEDS ORDERED: PREDNISONE10 MG PO (11:00)
[2021-02-19] MEDS ORDERED: NEBULIZER (11:01)
[2021-02-19] MEDS ORDERED: Ipratropium Brom3 ML INH (11:01)
== END 2021-02-19 11:37 | disposition home or self-care (01) | DRG 871 ==
LOC: ED 14:05 → EDHOLD 15:49 → 4E 15:49
PROVIDERS: Emergency Medicine; Student in an Organized Health Care Education/Training Program; ADMIT Family Medicine; ATTEND Family Medicine
DX: A41.9 Sepsis, unspecified organism (principal); J96.01 Acute respiratory failure with hypoxia; J18.9 Pneumonia, unspecified organism; E87.1 Hypo-osmolality and hyponatremia; F10.139 Alcohol abuse with withdrawal, unspecified; R65.20 Severe sepsis without septic shock; Z20.822 Contact with and (suspected) exposure to COVID-19; R73.9 Hyperglycemia, unspecified; E83.42 Hypomagnesemia; D53.9 Nutritional anemia, unspecified; J43.9 Emphysema, unspecified; I10 Essential (primary) hypertension; I48.0 Paroxysmal atrial fibrillation; R19.7 Diarrhea, unspecified; Z88.0 Allergy status to penicillin; Z91.018 Allergy to other foods; Z90.49 Acquired absence of other specified parts of digestive tract; Z87.891 Personal history of nicotine dependence; Z83.3 Family history of diabetes mellitus; Z82.3 Family history of stroke; I25.2 Old myocardial infarction; Z79.899 Other long term (current) drug therapy; Z79.82 Long term (current) use of aspirin

== ENCOUNTER → 2021-08-11 | Outpatient (CLI) | payer MEDICARE ==
[~2021-08-11] MED LIST changes: +Ipratropium Brom3 ML INH; +NEBULIZER; +ZITHROMAX250 MG PO
[2021-08-11 13:38] LABS: BASO % 0.4 % (0.0-1.0); EOS # 0.1 10*3/uL (0.0-0.4); EOS % 0.7 % (1.0-4.0); HEMATOCRIT 39.9 % (42.0-52.0); LYMPH # 1.2 10*3/uL (1.3-4.4); LYMPH % 16.2 % (27.0-41.0); MEAN CELL VOLUME 102.3 fl (80.0-94.0); MEAN CORPUSCULAR HGB 33.6 pg (27.0-31.0); MEAN CORPUSCULAR HGB CONC 32.8 g/dl (33.0-37.0); MEAN PLATELET VOLUME 10.1 fl (9.6-12.3); MONO # 0.8 10*3/uL (0.1-1.0); NEUT # 5.2 10*3/uL (2.3-7.9); NEUT % 70.1 % (47.0-73.0); PLATELET COUNT AUTOMATED 241 10*3/uL (130-400); RED CELL DISTRI WIDTH 12.1 % (0-14.5); WHITE BLOOD COUNT 7.5 10*3/uL (4.8-10.8)
[2021-08-11 13:39] LABS: BILIRUBIN Negative (Negative); BLOOD Negative (Negative); CLARITY Clear (Clear); COLOR Yellow (Yellow); GLUCOSE Negative (Negative); KETONE Negative (Negative); LEUKO ESTERASE Negative (Negative); NITRITE Negative (Negative); SPECIFIC GRAVITY 1.015 (1.001-1.030)
[2021-08-11 13:58] LABS: ALBUMIN 3.4 gm/dl (3.1-4.5); BUN 10 mg/dl (7-24); CHLORIDE 103 mmol/L (98-107); CHOLESTEROL 144 mg/dL (<200); CREATININE 0.94 mg/dL (0.70-1.30); GAMMA GLUTAMYL TRANSPEPTIDASE 68 U/L (15-85); IRON 86 ug/dL (65-175); LDL CHOLESTEROL 25 mg/dL (9-159); POTASSIUM 3.9 mmol/L (3.5-5.1); SGOT/AST 30 IU/L (3-35); SGPT/ALT 28 U/L (12-78); SODIUM 135 mmol/L (136-145); TOTAL IRON BINDING CAPACITY 346 ug/dl (250-450); TRIGLYCERIDES 88 mg/dl (<150)
[2021-08-11 14:06] LABS: ALKALINE PHOSPHATASE 55 U/L (45-117); TOTAL PROTEIN 7.5 gm/dL (6.4-8.2)
[2021-08-11 14:38] LABS: BACTERIA 1+; EPITHELIAL CELLS 0-2; RBC 0-2 rbc/hpf (0-2)
== END | disposition home or self-care (01) ==
LOC: LAB 13:13
PROVIDERS: ATTEND Family Medicine
DX: R79.89 Other specified abnormal findings of blood chemistry (principal); R53.83 Other fatigue; E55.9 Vitamin D deficiency, unspecified; E78.5 Hyperlipidemia, unspecified

== ENCOUNTER → 2022-02-13 | Outpatient (CLI) | payer MEDICARE ==
[2022-02-13 13:46] LABS: BASO % 0.4 % (0.0-1.0); EOS # 0.1 10*3/uL (0.0-0.4); EOS % 0.9 % (1.0-4.0); HEMATOCRIT 40.3 % (42.0-52.0); LYMPH # 1.1 10*3/uL (1.3-4.4); LYMPH % 19.2 % (27.0-41.0); MEAN CELL VOLUME 99.8 fl (80.0-94.0); MEAN CORPUSCULAR HGB 32.9 pg (27.0-31.0); MEAN PLATELET VOLUME 9.9 fl (9.6-12.3); MONO # 0.7 10*3/uL (0.1-1.0); MONO % 13.2 % (3.0-9.0); NEUT # 3.6 10*3/uL (2.3-7.9); NEUT % 65.4 % (47.0-73.0); PLATELET COUNT AUTOMATED 230 10*3/uL (130-400); RED BLOOD COUNT 4.04 10*6/uL (4.50-5.90); RED CELL DISTRI WIDTH 12.1 % (0-14.5); RETICULOCYTE % 2.31 % (0.50-2.50); WHITE BLOOD COUNT 5.5 10*3/uL (4.8-10.8)
[2022-02-13 14:01] LABS: BILIRUBIN Negative (Negative); BLOOD Negative (Negative); CLARITY Clear (Clear); COLOR Yellow (Yellow); GLUCOSE Negative (Negative); KETONE Negative (Negative); LEUKO ESTERASE Negative (Negative); NITRITE Negative (Negative); SPECIFIC GRAVITY <= 1.005 (1.001-1.030); UROBILINOGEN 0.2 E.U./dl (0.0-1.0)
[2022-02-13 14:10] LABS: ALKALINE PHOSPHATASE 59 U/L (45-117); BUN 10 mg/dl (7-24); CHLORIDE 104 mmol/L (98-107); CHOLESTEROL 149 mg/dL (<200); CREATININE 1.01 mg/dL (0.70-1.30); GAMMA GLUTAMYL TRANSPEPTIDASE 59 U/L (15-85); IRON 108 ug/dL (65-175); LDL CHOLESTEROL 38 mg/dL (9-159); POTASSIUM 4.3 mmol/L (3.5-5.1); SGOT/AST 28 IU/L (3-35); SGPT/ALT 28 U/L (12-78); SODIUM 136 mmol/L (136-145); TOTAL IRON BINDING CAPACITY 369 ug/dl (250-450); TRIGLYCERIDES 94 mg/dl (<150)
[2022-02-13 14:15] LABS: BACTERIA TRACE; WBC 0-2 wbc/hpf (0-5)
== END | disposition home or self-care (01) ==
LOC: LAB 13:25
PROVIDERS: ATTEND Family Medicine
DX: R79.89 Other specified abnormal findings of blood chemistry (principal); R53.83 Other fatigue; E78.5 Hyperlipidemia, unspecified

== ENCOUNTER → 2022-10-31 | Outpatient (CLI) | payer MEDICARE ==
[2022-10-31 13:38] LABS: BASO % 0.4 % (0.0-1.0); EOS # 0.1 10*3/uL (0.0-0.4); EOS % 0.9 % (1.0-4.0); HEMATOCRIT 42.2 % (42.0-52.0); LYMPH # 1.2 10*3/uL (1.3-4.4); LYMPH % 21.8 % (27.0-41.0); MEAN CELL VOLUME 102.2 fl (80.0-94.0); MEAN CORPUSCULAR HGB 33.4 pg (27.0-31.0); MEAN CORPUSCULAR HGB CONC 32.7 g/dl (33.0-37.0); MEAN PLATELET VOLUME 10.2 fl (9.6-12.3); MONO # 0.6 10*3/uL (0.1-1.0); MONO % 11.3 % (3.0-9.0); NEUT # 3.6 10*3/uL (2.3-7.9); NEUT % 65.1 % (47.0-73.0); PLATELET COUNT AUTOMATED 222 10*3/uL (130-400); RED BLOOD COUNT 4.13 10*6/uL (4.50-5.90); RED CELL DISTRI WIDTH 12.2 % (0-14.5); RETICULOCYTE % 2.43 % (0.50-2.50); WHITE BLOOD COUNT 5.5 10*3/uL (4.8-10.8)
[2022-10-31 13:39] LABS: BILIRUBIN Negative (Negative); BLOOD Negative (Negative); CLARITY Clear (Clear); COLOR Yellow (Yellow); GLUCOSE Negative (Negative); KETONE Trace (Negative); LEUKO ESTERASE Negative (Negative); NITRITE Negative (Negative); PH 5.5 (4.5-8.0); SPECIFIC GRAVITY 1.015 (1.001-1.030)
[2022-10-31 13:49] LABS: MUCOUS 1+
[2022-10-31 13:56] LABS: ALKALINE PHOSPHATASE 48 U/L (46-116); BUN 11 mg/dl (9-23); CHLORIDE 100 mmol/L (98-107); CHOLESTEROL 156 mg/dL (<200); GAMMA GLUTAMYL TRANSPEPTIDASE 34 U/L (0-73); LDL CHOLESTEROL 55 mg/dL (9-159); POTASSIUM 4.4 mmol/L (3.4-5.1); SGPT/ALT 24 U/L (10-49); TOTAL PROTEIN 7.3 gm/dL (6.0-8.0); TRIGLYCERIDES 116 mg/dl (<150)
[2022-10-31 14:17] LABS: VITAMIN D, 25-HYDROXY 55.1 ng/mL (30-100)
== END | disposition home or self-care (01) ==
LOC: LAB 13:14
PROVIDERS: ATTEND Family Medicine
DX: E78.5 Hyperlipidemia, unspecified (principal); E55.9 Vitamin D deficiency, unspecified; R79.89 Other specified abnormal findings of blood chemistry; R53.83 Other fatigue; R74.8 Abnormal levels of other serum enzymes; Z12.5 Encounter for screening for malignant neoplasm of prostate

== ENCOUNTER → 2023-06-04 | Outpatient (CLI) | payer MEDICARE ==
[2023-06-04 14:07] LABS: BASO % 0.3 % (0.0-1.0); BILIRUBIN Negative (Negative); BLOOD Negative (Negative); CLARITY Clear (Clear); COLOR Yellow (Yellow); EOS % 0.5 % (1.0-4.0); GLUCOSE Negative (Negative); HEMATOCRIT 37.9 % (42.0-52.0); KETONE Negative (Negative); LEUKO ESTERASE Negative (Negative); LYMPH # 1.3 10*3/uL (1.3-4.4); LYMPH % 21.8 % (27.0-41.0); MEAN CELL VOLUME 101.9 fl (80.0-94.0); MEAN CORPUSCULAR HGB 33.9 pg (27.0-31.0); MEAN CORPUSCULAR HGB CONC 33.2 g/dl (33.0-37.0); MEAN PLATELET VOLUME 10.9 fl (9.6-12.3); MONO # 0.8 10*3/uL (0.1-1.0); MONO % 13.3 % (3.0-9.0); NEUT # 3.8 10*3/uL (2.3-7.9); NEUT % 63.3 % (47.0-73.0); NITRITE Negative (Negative); PH 7.5 (4.5-8.0); PLATELET COUNT AUTOMATED 194 10*3/uL (130-400); RED BLOOD COUNT 3.72 10*6/uL (4.50-5.90); RED CELL DISTRI WIDTH 12.5 % (0-14.5); RETICULOCYTE % 2.27 % (0.50-2.50)
[2023-06-04 14:19] LABS: RBC 0-2 rbc/hpf (0-2)
[2023-06-04 14:20] LABS: BACTERIA TRACE; WBC 0-2 wbc/hpf (0-5)
[2023-06-04 14:43] LABS: ALKALINE PHOSPHATASE 40 U/L (46-116); BUN 11 mg/dl (9-23); CHLORIDE 102 mmol/L (98-107); CHOLESTEROL 134 mg/dL (<200); GAMMA GLUTAMYL TRANSPEPTIDASE 35 U/L (0-73); LDL CHOLESTEROL 40 mg/dL (9-159); POTASSIUM 4.4 mmol/L (3.4-5.1); SGPT/ALT 13 U/L (10-49); T3 UPTAKE 26.7 % (22.4-36.7); THYROXINE (T4) TOTAL 6.8 ug/dl (4.5-10.9); TOTAL PROTEIN 6.9 gm/dL (6.0-8.0); TRIGLYCERIDES 63 mg/dl (<150); VITAMIN D, 25-HYDROXY 50.5 ng/mL (30-100)
== END | disposition home or self-care (01) ==
LOC: LAB 13:40
PROVIDERS: ATTEND Family Medicine
DX: Z12.5 Encounter for screening for malignant neoplasm of prostate (principal); R79.89 Other specified abnormal findings of blood chemistry; R53.83 Other fatigue; E78.5 Hyperlipidemia, unspecified; E55.9 Vitamin D deficiency, unspecified

== ENCOUNTER 2024-01-18 01:44 | Emergency (ER) | payer MEDICARE ==
[~2024-01-18] VITALS: Ht 175.2 cm; Wt 77.1 kg
[2024-01-18] MEDS ORDERED: ceFAZolin sodium 1 GM VIAL IM ONE (02:50)
[2024-01-18] MEDS ORDERED: CEPHALEXIN500 M1 PO (02:55)
[2024-01-18] MEDS ORDERED: Gelatin Sponge 1 EACH SPON T ONE (02:55)
[2024-01-18] MEDS ORDERED: TRAMADOL HCL50 MG PO (02:55)
[2024-01-18] MEDS ORDERED: Water, Sterile 10 ML VIAL ONE (03:01)
== END 2024-01-18 02:49 | disposition home or self-care (01) ==
LOC: ED 01:44
DX: S92.421A Displaced fracture of distal phalanx of right great toe, initial encounter for closed fracture (principal); S91.201A Unspecified open wound of right great toe with damage to nail, initial encounter; J44.9 Chronic obstructive pulmonary disease, unspecified; E78.00 Pure hypercholesterolemia, unspecified; M10.9 Gout, unspecified; J45.909 Unspecified asthma, uncomplicated; Z88.0 Allergy status to penicillin; Z91.018 Allergy to other foods; Z90.49 Acquired absence of other specified parts of digestive tract; Z98.890 Other specified postprocedural states; F10.10 Alcohol abuse, uncomplicated; F17.210 Nicotine dependence, cigarettes, uncomplicated; W22.8XXA Striking against or struck by other objects, initial encounter; Y93.89 Activity, other specified; Y92.009 Unspecified place in unspecified non-institutional (private) residence as the place of occurrence of the external cause; Y99.8 Other external cause status

== ENCOUNTER → 2024-01-28 | Outpatient (CLI) | payer MEDICARE ==
[~2024-01-28] MED LIST changes: +CEPHALEXIN500 M1 PO; +TRAMADOL HCL50 MG PO
== END | disposition home or self-care (01) ==
LOC: CP 13:02
PROVIDERS: ATTEND Family Medicine
DX: J43.9 Emphysema, unspecified (principal)

== ENCOUNTER → 2024-04-28 | Outpatient (CLI) | payer MEDICARE ==
[2024-04-28 14:05] LABS: BASO % 0.4 % (0.0-1.0); EOS % 0.6 % (1.0-4.0); HEMATOCRIT 41.3 % (42.0-52.0); LYMPH # 1.3 10*3/uL (1.3-4.4); LYMPH % 18.9 % (27.0-41.0); MEAN CORPUSCULAR HGB 33.9 pg (27.0-31.0); MEAN CORPUSCULAR HGB CONC 32.9 g/dl (33.0-37.0); MEAN PLATELET VOLUME 10.6 fl (9.6-12.3); MONO # 0.9 10*3/uL (0.1-1.0); MONO % 12.3 % (3.0-9.0); NEUT # 4.7 10*3/uL (2.3-7.9); NEUT % 67.4 % (47.0-73.0); PLATELET COUNT AUTOMATED 198 10*3/uL (130-400); RED BLOOD COUNT 4.01 10*6/uL (4.50-5.90); RED CELL DISTRI WIDTH 12.4 % (0-14.5); RETICULOCYTE % 2.17 % (0.50-2.50)
[2024-04-28 14:12] LABS: BILIRUBIN Negative (Negative); BLOOD Negative (Negative); CLARITY Clear (Clear); COLOR Yellow (Yellow); GLUCOSE Negative (Negative); KETONE Negative (Negative); LEUKO ESTERASE Negative (Negative); NITRITE Negative (Negative); PH 7.5 (4.5-8.0)
[2024-04-28 14:27] LABS: RBC 0-2 rbc/hpf (0-2); WBC 0-2 wbc/hpf (0-5)
[2024-04-28 15:01] LABS: ALKALINE PHOSPHATASE 43 U/L (46-116); BUN 13 mg/dl (9-23); CHLORIDE 99 mmol/L (98-107); CHOLESTEROL 138 mg/dL (<200); GAMMA GLUTAMYL TRANSPEPTIDASE 38 U/L (0-73); LDL CHOLESTEROL 42 mg/dL (9-159); POTASSIUM 4.6 mmol/L (3.4-5.1); SGPT/ALT 14 U/L (5-49); T3 UPTAKE 30.6 % (22.4-36.7); THYROXINE (T4) TOTAL 7.6 ug/dl (4.5-10.9); TOTAL PROTEIN 7.1 gm/dL (6.0-8.0); TRIGLYCERIDES 63 mg/dl (<150); VITAMIN D, 25-HYDROXY 49.1 ng/mL (30-100)
== END ==
LOC: LAB 13:47
PROVIDERS: ATTEND Family Medicine
DX: Z12.5 Encounter for screening for malignant neoplasm of prostate (principal); R79.89 Other specified abnormal findings of blood chemistry; R53.83 Other fatigue; E78.5 Hyperlipidemia, unspecified; E55.9 Vitamin D deficiency, unspecified

== ENCOUNTER → 2025-01-21 | Outpatient (CLI) | payer MEDICARE ==
[2025-01-21 13:53] LABS: BASO % 0.4 % (0.0-1.0); BILIRUBIN Negative (Negative); BLOOD Negative (Negative); CLARITY Clear (Clear); COLOR Yellow (Yellow); EOS # 0.1 10*3/uL (0.0-0.4); GLUCOSE Negative (Negative); HEMATOCRIT 43.4 % (42.0-52.0); KETONE Negative (Negative); LEUKO ESTERASE Negative (Negative); MEAN CELL VOLUME 102.1 fl (80.0-94.0); MEAN CORPUSCULAR HGB 33.6 pg (27.0-31.0); MEAN CORPUSCULAR HGB CONC 32.9 g/dl (33.0-37.0); MEAN PLATELET VOLUME 10.1 fl (9.6-12.3); MONO # 0.9 10*3/uL (0.1-1.0); NEUT # 4.6 10*3/uL (2.3-7.9); NEUT % 66.8 % (47.0-73.0); NITRITE Negative (Negative); PH 6.5 (4.5-8.0); PLATELET COUNT AUTOMATED 206 10*3/uL (130-400); RED BLOOD COUNT 4.25 10*6/uL (4.50-5.90); RED CELL DISTRI WIDTH 12.7 % (0-14.5); RETICULOCYTE % 2.03 % (0.50-2.50); SPECIFIC GRAVITY 1.015 (1.001-1.030); WHITE BLOOD COUNT 6.8 10*3/uL (4.8-10.8)
[2025-01-21 14:07] LABS: BACTERIA TRACE
[2025-01-21 14:38] LABS: ALKALINE PHOSPHATASE 48 U/L (46-116); BUN 17 mg/dl (9-23); CHLORIDE 99 mmol/L (98-107); CHOLESTEROL 144 mg/dL (<200); GAMMA GLUTAMYL TRANSPEPTIDASE 45 U/L (0-73); LDL CHOLESTEROL 41 mg/dL (9-159); POTASSIUM 4.3 mmol/L (3.4-5.1); SGPT/ALT 17 U/L (5-49); T3 UPTAKE 37.7 % (22.4-36.7); TOTAL PROTEIN 7.4 gm/dL (6.0-8.0); TRIGLYCERIDES 69 mg/dl (<150)
[2025-01-21 14:39] LABS: VITAMIN D, 25-HYDROXY 59.5 ng/mL (30-100)
== END | disposition home or self-care (01) ==
LOC: LAB 13:29
PROVIDERS: ATTEND Family Medicine
DX: R79.89 Other specified abnormal findings of blood chemistry (principal); R53.83 Other fatigue; E78.5 Hyperlipidemia, unspecified; E55.9 Vitamin D deficiency, unspecified